=== PATIENT | female | born 1970 | race American Indian/Alaskan Native ===

== ENCOUNTER 2021-01-18 11:35 | Emergency (ER) | payer SELFPAY ==
--- NOTE | 2021-01-18 12:18 | Event Note ---
ED Screening Note ED Screening Note: Patient presents for frequent falls Denies any chest pain, shortness of breath, dizziness She states that she feels like her back gives out on her she states that from the falls she has lower back pain, bilateral hip pain, bilateral knee pain Patient states that she walks with a walker and a cane Past medical history of osteoarthritis and anemia She states that she has an allergy to [id number] iron pills This initial assessment/diagnostic orders/clinical plan/treatment(s) is/are subject to change based on patients health status, clinical progression and re- assessment by fellow clinical providers in the ED. Further treatment and workup at subsequent clinical providers discretion. Patient/guardian urged not to elope from the ED as their condition may be serious if not clinically assessed and managed. Initial orders include: labs, ua, XRs
--- NOTE | 2021-01-18 13:25 | XRay Report ---
XR spine lumbosacral 2-3V HISTORY: frequent falls, low back pain COMPARISON: None. TECHNIQUE: 3 view(s) of the lumbar spine obtained. FINDINGS: Vertebrae: Normal alignment. Chronic appearing mild L1 vertebral body height loss. No acute appeari ng vertebral body height loss.. Spondylosis:Severe lower lumbar spine facet arthropathy. IMPRESSION: 1. No acute findings. Severe lower lumbar spine facet arthropathy. Signer Name: Ashok Bojorquez MD Signed: 01/18/2021 1:21 PM Workstation Name: [email or web address]
--- NOTE | 2021-01-18 13:26 | XRay Report ---
BILATERAL KNEE 4 VIEW(S) LEFT AND 2 VIEWS RIGHT INDICATION / CLINICAL INFORMATION: frequent falls, bilaterall knee pain COMPARISON: None available. FINDINGS: BONES / JOINT(S): Moderate degenerative arthrosis of the left knee greatest at the medial tibiofemora l compartment. There is significant marginal osteophytosis and medial joint space narrowing. No signi ficant effusion is present. Moderate degenerative arthrosis is also present at the left knee in great est at the medial tibiofemoral compartment. Possible 1 cm intra-articular body at the anterior joint space. No significant effusion. There is significant arch osteophytosis and medial joint space narrow ing. No acute fracture or dislocation is present in either knee. SOFT TISSUES: No significant abnormality in the regional soft tissues of either knee. ADDITIONAL FINDINGS: None. Signer Name: Aidan Bazan MD Signed: 01/18/2021 1:22 PM Workstation Name: [id number]
--- NOTE | 2021-01-18 13:29 | XRay Report ---
PELVIS/BILATERAL HIPS 3 VIEW(S) INDICATION / CLINICAL INFORMATION: fall, bilateral hip pain COMPARISON: None available. FINDINGS: BONES / JOINT(S): Severely advanced degenerative arthrosis of the right hip with severe joint space n arrowing and osseous remodeling. Moderately advanced changes are present at the left hip with moderat e-severe superior joint space narrowing. No significant effusion is present at either hip. No acute f racture or dislocation is present at either hip. No acute abnormality of the visualized pelvis. SOFT TISSUES: No significant abnormality. ADDITIONAL FINDINGS: None. Signer Name: Aidan Bazan MD Signed: 01/18/2021 1:24 PM Workstation Name: [id number]
[2021-01-18 14:08] LABS: Hematocrit 34.6 % (30.3-42.9); Hemoglobin 10.7 gm/dl (10.1-14.3); Mean Corpuscular HGB Conc 31 % (30-34); Mean Corpuscular Volume 72 fl (79-97); Platelet Count 320 K/mm3 (140-440); Red Cell Distribution Width 19.5 % (13.2-15.2)
[2021-01-18 14:25] LABS: Alanine Aminotransferase 16 units/L (7-56); Albumin 4.1 g/dL (3.9-5); Blood Urea Nitrogen 11 mg/dL (7-17); Hemolysis Index 4
[2021-01-18 14:29] LABS: BUN/Creatinine Ratio 18
[2021-01-18 14:39] LABS: Total Cells Counted 100
[2021-01-18 14:40] LABS: Hypochromasia 1+; Large Platelets Few; Platelet Estimate Consistent w Auto
[2021-01-18] MEDS ORDERED: KETOROLAC 60 MG/2 ML INJ IM ONE (17:06)
--- NOTE | 2021-01-18 17:09 | Emergency Department Report ---
HPI - General Chief Complaint: Fall Time Seen by Provider: 01/18/21 12:13 - HPI HPI: This is a 50-year-old -Citizen Of [place] female who presents to the emergency department with a complaint of low back pain, bilateral hip pain, knee pain, and multiple frequent falls over the past few weeks. The patient says that she does not walk but instead "hops." She thinks that her back just gives out at points and she is unable to reach out and grab anything to keep herself from falling because she has chronic bilateral shoulder pain. Overall these joint pains have been going on for the past 3 years. She previously followed with a PCP at [facility] but has not seen them recently regarding any of her symptoms. She does not have an orthopedist. She has not taken anything for symptoms prior to presentation. She denies hitting her head or any loss of consciousness. She has a past medical history of recently diagnosed sleep apnea. She also says that she has a history of anemia requiring previous transfusions, and has some type of GI ulcer. ED Past Medical Hx - Past Medical History Hx Hypertension: Yes Additional medical history: osteoarthritis - Social History Smoking Status: Never Smoker Substance Use Type: None - Medications Home Medications: Home Medications Medication Instructions Recorded Confirmed Last Taken Type HYDROcodone/APAP 5-325 [Montrose 1 each PO Q6HR PRN #12 tablet 01/18/21 Unknown Rx 5/325] ED Review of Systems ROS: Stated complaint: FALL Other details as noted in HPI Comment: All other systems reviewed and negative Constitutional: denies: chills, fever Eyes: denies: eye pain, vision change ENT: denies: ear pain, throat pain Respiratory: denies: cough, shortness of breath Cardiovascular: denies: chest pain, palpitations Gastrointestinal: denies: abdominal pain, vomiting Genitourinary: denies: dysuria, discharge Musculoskeletal: back pain, arthralgia, myalgia. denies: joint swelling Skin: denies: rash, lesions Neurological: denies: numbness, paresthesias Physical Exam - Physical Exam Physical Exam: GENERAL: The patient is well-developed well-nourished. HENT: Normocephalic. Atraumatic. Patient has moist mucous membranes. EYES: Extraocular motions are intact. NECK: Supple. Trachea is midline. CHEST/LUNGS: Clear to auscultation. There is no respiratory distress noted. HEART/CARDIOVASCULAR: Regular. There is no tachycardia. There is no murmur. ABDOMEN: Abdomen is soft, nontender. Patient has normal bowel sounds. Morbidly obese habitus. SKIN: Skin is warm and dry. NEURO: The patient is awake, alert, and oriented. The patient is cooperative. The patient has no focal neurologic deficits. Normal speech. Cranial nerves II through XII grossly intact. No facial asymmetry. No pronator drift or dysmetria. MUSCULOSKELETAL: There is tenderness to palpation along the bilateral lower extremities, worst at the knees and hips. Negative anterior posterior drawer test of the bilateral knees. No laxity with valgus or varus stress. There is no limitation range of motion. ED Medical Decision Making - Lab Data Result diagrams: 01/18/21 13:04 01/18/21 13:04 Lab Results 01/18/21 01/18/21 Range/Units 13:04 13:04 WBC 7.7 (4.5-11.0) K/mm3 RBC 4.80 (3.65-5.03) M/mm3 Hgb 10.7 (10.1-14.3) gm/dl Hct 34.6 (30.3-42.9) % MCV 72 L (79-97) fl MCH 22 L (28-32) pg MCHC 31 (30-34) % RDW 19.5 H (13.2-15.2) % Plt Count 320 (140-440) K/mm3 Eos % (Auto) Wheel Filler Baso % (Auto) Wheel Filler Add Manual Diff Complete Total Counted 100 Seg Neuts % (Manual) 56.0 (40.0-70.0) % Lymphocytes % (Manual) 24.0 (13.4-35.0) % Monocytes % (Manual) 8.0 H (0.0-7.3) % Eosinophils % (Manual) 11.0 H (0.0-4.3) % Basophils % (Manual) 1.0 (0.0-1.8) % Nucleated RBC % Not Reportable Seg Neutrophils # Man 4.3 (1.8-7.7) K/mm3 Band Neutrophils # 0.0 K/mm3 Lymphocytes # (Manual) 1.8 (1.2-5.4) K/mm3 Abs React Lymphs (Man) 0.0 K/mm3 Monocytes # (Manual) 0.6 (0.0-0.8) K/mm3 Eosinophils # (Manual) 0.8 H (0.0-0.4) K/mm3 Basophils # (Manual) 0.1 (0.0-0.1) K/mm3 Metamyelocytes # 0.0 K/mm3 Myelocytes # 0.0 K/mm3 Promyelocytes # 0.0 K/mm3 Blast Cells # 0.0 K/mm3 WBC Morphology Not Reportable Hypersegmented Neuts Not Reportable Hyposegmented Neuts Not Reportable Hypogranular Neuts Not Reportable Smudge Cells Not Reportable Toxic Granulation Not Reportable Toxic Vacuolation Not Reportable Dohle Bodies Not Reportable Pelger-Huet Anomaly Not Reportable Faisal Rods Not Reportable Platelet Estimate Consistent w auto Clumped Platelets Not Reportable Plt Clumps, EDTA Not Reportable Large Platelets Few Giant Platelets Not Reportable Platelet Satelliting Not Reportable Plt Morphology Comment Not Reportable RBC Morphology Not Reportable Dimorphic RBCs Not Reportable Polychromasia Not Reportable Hypochromasia 1+ Poikilocytosis Not Reportable Anisocytosis Not Reportable Microcytosis Not Reportable Macrocytosis Not Reportable Spherocytes Not Reportable Pappenheimer Bodies Not Reportable Sickle Cells Not Reportable Target Cells Not Reportable Tear Drop Cells Not Reportable Ovalocytes Not Reportable Helmet Cells Not Reportable [place] Bodies Not Reportable [place] Rings Not Reportable [place] Cells Not Reportable Bite Cells Not Reportable Crenated Cell Not Reportable Elliptocytes Not Reportable Acanthocytes (Spur) Not Reportable Rouleaux Not Reportable Hemoglobin C Crystals Not Reportable Schistocytes Not Reportable Malaria parasites Not Reportable José Luis Bodies Not Reportable Hem Pathologist Commnt No Sodium 137 (137-145) mmol/L Potassium 4.5 (3.6-5.0) mmol/L Chloride 99.2 (98-107) mmol/L Carbon Dioxide 24 (22-30) mmol/L Anion Gap 18 mmol/L BUN 11 (7-17) mg/dL Creatinine 0.6 (0.6-1.2) mg/dL Estimated GFR > 60 ml/min BUN/Creatinine Ratio 18 % Glucose 83 (65-100) mg/dL Calcium 9.0 (8.4-10.2) mg/dL Magnesium 1.90 (1.7-2.3) mg/dL Total Bilirubin 0.60 (0.1-1.2) mg/dL AST 27 (5-40) units/L ALT 16 (7-56) units/L Alkaline Phosphatase 125 (35-129) units/L Total Creatine Kinase 38 (30-135) units/L Total Protein 7.2 (6.3-8.2) g/dL Albumin 4.1 (3.9-5) g/dL Albumin/Globulin Ratio 1.3 % - Radiology Data Radiology results: report reviewed XR spine lumbosacral 2-3V HISTORY: frequent falls, low back pain COMPARISON: None. TECHNIQUE: 3 view(s) of the lumbar spine obtained. FINDINGS: Vertebrae: Normal alignment. Chronic appearing mild L1 vertebral body height loss. No acute appearing vertebral body height loss.. Spondylosis:Severe lower lumbar spine facet arthropathy. IMPRESSION: 1. No acute findings. Severe lower lumbar spine facet arthropathy. PELVIS/BILATERAL HIPS 3 VIEW(S) INDICATION / CLINICAL INFORMATION: fall, bilateral hip pain COMPARISON: None available. FINDINGS: BONES / JOINT(S): Severely advanced degenerative arthrosis of the right hip with severe joint space narrowing and osseous remodeling. Moderately advanced changes are present at the left hip with moderate-severe superior joint space narrowing. No significant effusion is present at either hip. No acute fracture or dislocation is present at either hip. No acute abnormality of the visualized pelvis. SOFT TISSUES: No significant abnormality. ADDITIONAL FINDINGS: None. BILATERAL KNEE 4 VIEW(S) LEFT AND 2 VIEWS RIGHT INDICATION / CLINICAL INFORMATION: frequent falls, bilaterall knee pain COMPARISON: None available. FINDINGS: BONES / JOINT(S): Moderate degenerative arthrosis of the left knee greatest at the medial tibiofemoral compartment. There is significant marginal osteophytosis and medial joint space narrowing. No significant effusion is present. Moderate degenerative arthrosis is also present at the left knee in greatest at the medial tibiofemoral compartment. Possible 1 cm intra-articular body at the anterior joint space. No significant effusion. There is significant arch osteophytosis and medial joint space narrowing. No acute fracture or dislocation is present in either knee. SOFT TISSUES: No significant abnormality in the regional soft tissues of either knee. ADDITIONAL FINDINGS: None. - Medical Decision Making This patient presents to the emergency department with a complaint of having so me recent falls including today and she presents with pain to the bilateral lower extremities, hips and low back. X-rays were done of the bilateral knees, bilateral hips with pelvis, and the lumbar spine. All these areas show moderate or advanced osteoarthritis but no fracture, dislocation, subluxation, signs of osteomyelitis, or any other acute processes. The patient's labs have been unremarkable including CBC, metabolic panel, magnesium. The patient was given a dose of IM Toradol. Upon reevaluation she has some improvement. Vital signs have been reassuring throughout her ED course. The patient was able to display the ability to stand and bear weight and take a few steps. She is limited by her discomfort, but not by any weakness. On examination she did not have any focal, motor or sensory deficits and her cranial nerves are intact. The patient will be discharged home to follow-up with primary care and or an orthopedist. She has been given a prescription for oral analgesia. She will return to the emergency department with any worsening of her symptoms or with any acute distress. Critical Care Time: No Critical care attestation.: If time is entered above; I have spent that time in minutes in the direct care of this critically ill patient, excluding procedure time. ED Disposition Clinical Impression: Hypertension Qualifiers: Hypertension type: essential hypertension Qualified Code(s): I10 - Essential (primary) hypertension Osteoarthritis Qualifiers: Osteoarthritis location: multiple joints Osteoarthritis type: unspecified Qualified Code(s): M15.9 - Polyosteoarthritis, unspecified Joint pain Qualifiers: Joint pain location: unspecified Qualified Code(s): M25.50 - Pain in unspecified joint Fall Qualifiers: Encounter type: initial encounter Qualified Code(s): W19.XXXA - Unspecified fall, initial encounter Disposition: DC-01 TO HOME OR SELFCARE Is pt being admited?: No Condition: Stable Instructions: Osteoarthritis, Musculoskeletal Pain, Joint Pain, Hypertension, Adult, Hypertension (ED) Additional Instructions: Please follow-up with a primary care physician in the next few days. I am also giving you a referral for 2 different local orthopedic groups, Dr. Arriaga and [place]. Please follow-up with an orthopedist regarding your joint pains and x-ray findings of osteoarthritis. You have been prescribed a medication that is sedating and therefore should not be taken prior to driving, working, and responsible for children and in no way should be mixed with alcohol of any quantity. The pain medication prescribed also has Tylenol in it. Please do not take extra Tylenol on top of this as it can cause liver problems. Return to the emergency department with any worsening of your symptoms, new or concerning symptoms not addressed during this current emergency department visit, or with any acute distress. Prescriptions: HYDROcodone/APAP 5-325 [[place]rose 5/325] 1 each PO Q6HR PRN #12 tablet PRN Reason: Pain Referrals: VINOD ARRIAGA MD [Staff Physician] - 3-5 Days [facility] [Provider Group] - 3-[address] [facility] [Provider Group] - 3-5 Days Forms: Work/School Release Form(ED) Time of Disposition: 18:52
[2021-01-18 19:18] VITALS: BP 136/74
== END 2021-01-18 19:18 | disposition home or self-care (01) ==
LOC: ED 11:35
DX: I10 Essential (primary) hypertension (principal); M15.9 Polyosteoarthritis, unspecified; M25.50 Pain in unspecified joint; Z79.899 Other long term (current) drug therapy; X58.XXXA Exposure to other specified factors, initial encounter; Y93.89 Activity, other specified; Y92.89 Other specified places as the place of occurrence of the external cause; Y99.8 Other external cause status
CPT/HCPCS: 36415; 72100; 73521; 73562; 80053; 82550; 83735; 85007; 85025; 96372; 99283; J1885